=== PATIENT | male | born 1955 | race Caucasian/White ===

== ENCOUNTER 2020-11-29 07:00 | Day surgery (SDC) | payer BC ==
--- OUTSIDE RECORDS SUMMARY | 2020-11-17 16:06 | XMSREPORT | Referral Summary ---
:1955 Author Organization [facility] s Address [address] [place] [address] Care Team Providers Name Role Phone Provider, Attributed RESOURCE Attributed Provider Unavailab narinder Valdes CNP Primary Care Provider Reason for Referral Transitions of Care (Routine) Status Reason Specialty Diagnoses / Referred By Referred To Procedures Contact Contact New Request Service Not Diagnoses Flank pain [facility] [address] [place], [place] [address] Phone: [place], [place] [phone] Fax: Encounter Details Date Type Department Care Team Description 10/13/2020 Orders Only [facility] Sitzler, Flank p ain (Primary Dx); [facility] Steele Right nephrolithiasis [address] [place] [address] [place] [address] [phone] Allergies Active Allergy Reactions Severity Noted Date Comments Iodine Anaphylaxis (High) High 10/11/2020 documented as of this encounter (statuses as of 10/13/2020) Medications Medication Sig Dispensed Refills Start Date End Date Status niacin 100 mg tablet Take 100 mg by 0 Active mouth 3 times a day naproxen (ALEVE) 220 Take 220 mg by 0 Active mg tablet mouth 2 times a day as needed aspirin 81 mg enteric Take 81 mg by 0 Active coated tablet mouth 1 time per day Misc Natural Products Take by mouth 0 Active ([id number] COMPLEX PO) vitamin D3, Take 50 mcg by 0 Act brad cholecalciferol, 50 mouth 1 time mcg (2000 unit) tablet per day omeprazole (PRILOSEC) Take 20 mg by 0 Active 20 mg capsule mouth 1 time a day in the morning levocetirizine (XYZAL) Take 5 mg by 0 Active 5 MG tablet mouth 1 time a day in the evening ondansetron (ZOFRAN) 4 Take 1 tablet 30 tablet 0 10/11/2020 Active mg tabletIndications: (4 mg) by mouth Nausea every 6 hours as needed for nausea or vomiting for up to 30 doses tamsulosin (FLOMAX) Take 1 capsule 30 capsule 0 10/11/202011/2020 Active 0.4 mg (0.4 mg) by capsuleIndications: mouth 1 time Right nephrolithiasis per day documented as of this encounter (statuses as of 10/13/2020) Active Problems Problem Noted Date Sleep apnea 04/22/2009 Other and unspecified hyperlipidemia documented as of this encounter (statuses as of 10/13/2020) Immunizations Name Administration Dates Next Due Influenza Vaccine,unspecified 05/14/2019 Moderna COVID-19 Vaccine 06/10/2020, 05/13/2020 TDAP 04/22/2018, 05/04/2015 Zoster Recombinant (Shingrix) 06/02/2019, 04/10/2019 documented as of this encounter Social History Tobacco Use Types Packs/Day Years Used Date Never Smoker Smokeless Tobacco: Never Used Alcohol Use Standard Drinks/Week Comments Not Asked 0 (1 standard drink = 0.6 oz pure alcoho l) Sex Assigned at Date Recorded Not on file documented as of this encounter Plan of Treatment Name Type Priority Associated Diagnoses Order S chedule CLINIC REFERRAL Referral Routine Flank pain Ordered: 10/13/2020 RADIOLOGY NON ONE Right nephrolithiasis CHART documented as of this encounter Visit Diagnoses Diagnosis Flank pain - Primary Abdominal pain, unspecified site Right nephrolithiasis documented in this encounter
[~2020-11-29 07:00] MED LIST: Lactated Ringers 1,000 ML IV SCH; Sodium Chloride 0.9% 10 ML Syringe FLUSH PRN
[2020-11-29] MEDS ORDERED: Propofol 200 MG/20 ML SDV ONE (08:01)
[2020-11-29] MEDS ORDERED: Midazolam 1 MG/ML 2 ML SDV ONE (08:01)
--- NOTE | 2020-11-29 08:50 | PCM.OPNOTE ---
- General Post-Op/Procedure Note Date of Surgery/Procedure: 11/29/20 Operative Procedure(s): Colonoscopy and polypectomies x2 Pre Op Diagnosis: Constipation and alteration of bowels. Post-Op Diagnosis: 2 small polyps identified 20 cm. Regular biopsy forceps used to remove these polyps. Anesthesia Technique: MAC Primary Surgeon: Augustus Wade Condition: Good Free Text/Narrative:: INFORMED CONSENT: Patient is here today for elective colonoscopy. All aspects of this procedure have been discussed with the patient. All possible complications also, including possibility of perforation, infection, pain, bleeding and unknown complications. In the event of perforation patient may need to have abdominal exploration, colon resection, colostomy and even was discussed. Anesthetic complications were handled by anesthesia department. The patient understands fully well. Patient did not have any further questions for me at the end of my interview. The patient wishes for me to proceed. PREOPERATIVE DIAGNOSIS/INDICATIONS: [Alteration of bowels] POSTOPERATIVE DIAGNOSIS: [2 small polyps at 20 cm.] INSTRUMENT USED: Olympus videocolonoscope. ASA CLASSIFICATION: [] ANESTHESIA: Continuous EKG, oximetry and intermittent blood pressure and respiratory monitoring were performed throughout the procedure. IV Versed and Fentanyl were administered. PROCEDURE PERFORMED: Colonoscopy POSITIONS OF PATIENT: Left lateral. RECTUM: Normal. SIGMOID COLON: 2 small polyps noted at 20 cm removed by regular biopsy forceps. Sites were observed no bleeding noted. DESCENDING COLON: Normal. SPLENIC FLEXURE: Normal. TRANSVERSE COLON: Normal. HEPATIC FLEXURE: Normal. ASCENDING COLON: Normal. CECUM: Normal. ILEOCECAL VALVE: Normal. BIOPSY: None. TOLERANCE: Excellent. COMPLICATIONS: None. Final diagnosis: Normal colonoscopy except for 2 polyps at 20 cm. Prep: Excellent
[2020-11-29 09:55] VITALS: BP 157/94; PULSE 72
== END 2020-11-29 09:46 | disposition home or self-care (01) ==
LOC: KA.SDS 07:00
PROVIDERS: ATTEND Family Medicine
DX: K63.5 Polyp of colon (principal); K59.00 Constipation, unspecified; I10 Essential (primary) hypertension; E78.5 Hyperlipidemia, unspecified; G47.30 Sleep apnea, unspecified; Z79.899 Other long term (current) drug therapy; Z88.8 Allergy status to other drugs, medicaments and biological substances
CPT/HCPCS: 00812; J2250; J2704; J7120